=== PATIENT | female | born 1995 | race African-American/Black ===

== ENCOUNTER → 2017-02-21 | Outpatient (CLI) | payer OTHER ==
--- NOTE | 2017-02-21 11:35 | Diagnostic Imaging Report ---
PROCEDURE: MRI right lower extremity without contrast. TECHNIQUE: Multiplanar, multisequence non contrast-enhanced MRI of the right ankle was accomplished. INDICATION: Foot pain. Patient is a track runner. Evaluate for stress injury. COMPARISONS: None available. FINDINGS: TENDONS: Distal Achilles tendon is normal. The peroneal tendons are normal in position without tenosynovitis and are intact. Posterior tibialis, flexor digitorum longus and flexor hallux longus tendons are normal. The anterior tibialis and extensor hallux longus are normal. There is mild tenosynovitis of the extensor digitorum longus at the level of the talar neck. LIGAMENTS: Inferior tibiofibular syndesmotic ligaments are intact. The anterior talofibular, calcaneofibular and posterior talofibular ligaments are normal. Medial collateral ligamentous complex is normal. BONES AND CARTILAGE: No osteochondral lesion of the talar dome. No fracture or stress fracture. The articular cartilage of the tibiotalar and posterior subtalar joints are normal. SOFT TISSUES: No evidence of plantar fasciitis. No abnormal soft tissue scar/fibrosis within the tarsal canal/sinus tarsi or tarsal tunnel. No ankle joint effusion. IMPRESSION: 1. No stress fracture or bone contusion. 2. No acute ligamentous injury. 3. Mild tenosynovitis of the extensor digitorum longus common sheath at the level of the talar neck. This is near but does not directly correspond to the marker placed on the lateral aspect of the mid/hindfoot marked area of maximal pain. Etiology is likely mechanical in nature due to chronic repetitive microtrauma from running. Dictated by: Dictated on workstation # [id number]
== END ==
LOC: RAD 09:39
DX: M79.671 Pain in right foot (principal); M65.9 Synovitis and tenosynovitis, unspecified

== ENCOUNTER 2017-11-24 19:17 | Emergency (ER) | payer OTHER ==
[~2017-11-24] VITALS: Ht 175.3 cm; Wt 70.3 kg
--- OUTSIDE RECORDS SUMMARY | 2017-11-24 19:23 | XMS REPORT ---
Author Author MICHAEL BRAN Organization [employer] Address Unknown Phone Unavailable Care Team Providers Care Technology Sales Consultant Name Role Phone MICHAEL BRAN CP Unavailable Allergies, Adverse Reactions, Alerts Substance Reaction Event Type N.K.D.A. Info Not Available Non Drug Allergy Problems Problem Type Condition Code Onset Dates Condition Status Assessment Bronchitis J40 Active Medications Medication Code System Code Instructions Start Date End Date Status Dosage Zithromax Z-Jozef [facility] [address]-62 250 MG Orally Once a day February 13, 2016 February 18, 2016 2 tablets on the first day, then 1 tablet daily for 4 days ProAir HFA [facility] [place] [id number] 108 (90 Base) MCG/ACT Inhalation every 4 hrs prn February 13, 2016 2 puffs as needed Procedures Procedure Coding System Code Date Office Visit, New Pt., Level 3 CPT-4 37015 February 13, 2016 Vital Signs Date/Time: February 13, 2016 Temperature 99.8 F BMIPercentile 50.6 % Weight 151.4 lbs Height 70 in BMI 21.72 Index Blood Pressure Diastolic 62 mmHg Blood Pressure Systolic 120 mmHg Cardiac Monitoring Heart Rate 72 bpm Wt Percentile 81.51 % Ht Percentile 98.77 % Results No Known Results Summary Purpose [employer] Submission
--- OUTSIDE RECORDS SUMMARY | 2017-11-24 19:23 | XMS REPORT | Continuity of Care Document ---
Author Author [facility] Organization [facility] Address Unknown Phone Unavailable Allergies There is no data. Medications There is no data. Problems Date Dx Coded Attending Type Code Diagnosis Diagnosed By 12/28/2015 KELSEY RICHARDS DC, Ot M54.5 02/07/2016 Ot N63 02/21/2017 KELSEY RICHARDS DC, Ot M54.5 LOW BACK PAIN 02/21/2017 Ot N63 UNSPECIFIED LUMP IN BREAST 03/26/2017 JACQUIE PERALES MD Ot M65.9 SYNOVITIS AND TENOSYNOVITIS, UNSPECIFIED 03/26/2017 JACQUIE PERALES MD Ot M79.671 PAIN IN RIGHT FOOT 04/16/2017 JACQUIE PERALES MD Ot M65.9 SYNOVITIS AND TENOSYNOVITIS, UNSPECIFIED 04/16/2017 JACQUIE PERALES MD, Ot M79.671 PAIN IN RIGHT FOOT Procedures There is no data. Results There is no data. Encounters ACCT No. Visit Date/Time Discharge Status Pt. Type Provider Facility Loc./Unit Complaint [id number] 02/21/2017 09:39:00 02/21/2017 23:59:59 CLS Outpatient JACQUIE PERALES MD [facility] RAD M79.671 RT FOOT PAIN [id number] 12/15/2015 12:09:00 12/15/2015 23:59:59 CLS Outpatient KELSEY RICHARDS DC [facility] RAD LOW BACK PAIN OVER 1 YR [id number] 01/25/2016 09:10:00 Document Registration
[2017-11-24 19:33] LABS: BILIRUBIN,URINE NEGATIVE (NEGATIVE); CLARITY,URINE VERY CLOUDY; COLOR,URINE YELLOW; GLUCOSE, URINE (UA) NEGATIVE (NEGATIVE); KETONES,URINE NEGATIVE (NEGATIVE); LEUKOCYTE ESTERASE ,URINE 2+ (NEGATIVE); NITRITE,URINE NEGATIVE (NEGATIVE); PH,URINE 6 (5-9); PROTEIN,URINE 1+ (NEGATIVE); UROBILINOGEN,URINE NORMAL (NORMAL)
[2017-11-24 19:53] LABS: BACTERIA,URINE LARGE /HPF
[2017-11-24 19:54] LABS: SQUAMOUS EPITHELIAL CELL,UR 25-50 /HPF
[2017-11-24 19:56] LABS: AMPHETAMINE SCREEN, URINE NEGATIVE (NEGATIVE); BARBITURATE SCREEN URINE NEGATIVE (NEGATIVE); BENZODIAZEPINES SCREEN URINE NEGATIVE (NEGATIVE); CANNABINOID SCREEN, URINE NEGATIVE (NEGATIVE); COCAINE SCREEN URINE NEGATIVE (NEGATIVE); METHADONE STAT NEGATIVE (NEGATIVE); METHAMPHETAMINE SCREEN URINE S NEGATIVE (NEGATIVE); OPIATE SCREEN URINE NEGATIVE (NEGATIVE); OXYCODONE STAT NEGATIVE (NEGATIVE); PROPOXYPHENE STAT NEGATIVE (NEGATIVE); TRICYCLIC ANTIDEPRESSANTS SCRE NEGATIVE (NEGATIVE)
[2017-11-24] MEDS ORDERED: CYCL5TAB PO ×2 (20:06→20:08)
[2017-11-24] MEDS ORDERED: NAPR-1071 PO ×2 (20:06→20:08)
[2017-11-24] MEDS ORDERED: SULF1TAB35 PO ×2 (20:06→20:08)
--- NOTE | 2017-11-24 20:06 | ED Back Pain ---
General Chief Complaint: Back Problems Stated Complaint: BACK PAIN Nursing Triage Note: PATIENT STATES THAT SHE HURT HER BACK IN TRACK LAST FEBRUARY AND WAS SEEING A CHIROPRACTOR. IT GOT BETTER UNTIL LAST FRIDAY NIGHT WHEN SHE WAS DANCING AND IT STARTED INSTANTLY HURTNG AGAIN. IT IS MOSTLY ON THE LEFT SIDE OF HER LOWER BACK. Nursing Sepsis Screen: No Definite Risk Source of Information: Patient Exam Limitations: No Limitations History of Present Illness Date Seen by Provider: Nov 24, 2017 Time Seen by Provider: 20:02 Initial Comments To ER with a complaint of left low back pain that began on Friday night abruptly after a dance move. Pain is nonradiating. Currently she is being treated for bacterial vaginosis and yeast infection with Diflucan and metronidazole prescribed by [employer] [facility] [employer] She attends [employer] and is running track. She has a history of some chronic back pain and history of sacroiliac joint fracture from track related injury she states that she has not taken anything at home for the pain. Location: Lumbar Spine Timing/Duration: 2-3 Days Severity: Moderate Associated Symptoms: lower back pain Allergies and Home Medications Allergies Coded Allergies: No Known Drug Allergies (Unverified , 11/24/17) Constitutional: see HPI EENTM: see HPI Respiratory: no symptoms reported Cardiovascular: no symptoms reported Genitourinary: no symptoms reported Musculoskeletal: see HPI, back pain Skin: no symptoms reported Past Hvhdvea-Rdmhkj-Hatasz Hx Patient Social History Alcohol Use: Rarely Uses Recreational Drug Use: No Smoking Status: Never a Smoker 2nd Hand Smoke Exposure: No Recent Foreign Travel: No Contact w/Someone Who Travel: No Recent Infectious Disease Expo: No Recent Hopitalizations: No Seasonal Allergies Seasonal Allergies: No Surgeries History of Surgeries: No Respiratory History of Respiratory Disorde: No Cardiovascular History of Cardiac Disorders: No Neurological History of Neurological Disord: No Genitourinary History of Genitourinary Disor: No Gastrointestinal History of Gastrointestinal Di: No Musculoskeletal History of Musculoskeletal Dis: No Endocrine History of Endocrine Disorders: No HEENT History of HEENT Disorders: No Cancer History of Cancer: No Psychosocial History of Psychiatric Problem: No Integumentary History of Skin or Integumenta: No Blood Transfusions History of Blood Disorders: No Physical Exam Vital Signs Vital Sign - Last 12Hours 11/24/17 19:33 Temp 98.0 Pulse 72 Resp 20 B/P (MAP) 124/82 (96) Pulse Ox 97 O2 Delivery Room Air Capillary Refill : Less Than 3 Seconds General Appearance: No Apparent Distress, WD/WN HEENT: PERRL/EOMI, TMs Normal Neck: Full Range of Motion, Normal Inspection, Non Tender Respiratory: No Accessory Muscle Use, Accessory Muscle Use Gastrointestinal: Non Tender, Soft Back: Other (area of tenderness area of tenderness over the left sacroiliac joint) Neurologic/Psychiatric: Alert, Oriented x3, No Motor/Sensory Deficits Skin: Normal Color, Warm/Dry Progress/Results/Core Measures Results/Orders Lab Results Laboratory Tests Test 11/24/17 19:25 Range/Units Urine Color YELLOW Urine Clarity VERY CLOUDY H Urine pH 6 5-9 Urine Specific [place] 1.020 1.016-1.022 Urine Protein 1+ H NEGATIVE Urine Glucose (UA) NEGATIVE NEGATIVE Urine Ketones NEGATIVE NEGATIVE Urine Nitrite NEGATIVE NEGATIVE Urine Bilirubin NEGATIVE NEGATIVE Urine Urobilinogen NORMAL NORMAL MG/DL Urine Leukocyte Esterase 2+ H NEGATIVE Urine RBC (Auto) NEGATIVE NEGATIVE Urine RBC NONE /HPF Urine WBC 10-25 H /HPF Urine Squamous Epithelial Cells 25-50 H /HPF Urine Crystals NONE /LPF Urine Bacteria LARGE H /HPF Urine Casts NONE /LPF Urine Mucus NEGATIVE /LPF Urine Culture Indicated YES Urine Opiates Screen NEGATIVE NEGATIVE Urine Oxycodone Screen NEGATIVE NEGATIVE Urine Methadone Screen NEGATIVE NEGATIVE Urine Propoxyphene Screen NEGATIVE NEGATIVE Urine Barbiturates Screen NEGATIVE NEGATIVE Ur Tricyclic Antidepressants Screen NEGATIVE NEGATIVE Urine Phencyclidine Screen NEGATIVE NEGATIVE Urine Amphetamines Screen NEGATIVE NEGATIVE Urine Methamphetamines Screen NEGATIVE NEGATIVE Urine Benzodiazepines Screen NEGATIVE NEGATIVE Urine Cocaine Screen NEGATIVE NEGATIVE Urine Cannabinoids Screen NEGATIVE NEGATIVE My Orders Orders - ASHTYN LOPEZ APRN Ua Culture If Indicated (11/24/17 19:20) Urine Bedside (11/24/17 19:20) Drug Screen Stat (Urine) (11/24/17 19:39) Urine Culture (11/24/17 19:25) Vital Signs/I&O Vital Sign - Last 12Hours 11/24/17 19:33 Temp 98.0 Pulse 72 Resp 20 B/P (MAP) 124/82 (96) Pulse Ox 97 O2 Delivery Room Air Blood Pressure Mean: 96 Point of Care Testing Urine -Bedside: Negative Departure Impression Impression: Primary Impression: Acute low back pain without sciatica Additional Impression: Urinary tract infection Disposition: 01 HOME, SELF-CARE Condition: Stable Departure-Patient Inst. Decision time for Depature: 20:04 Referrals: NO,LOCAL PHYSICIAN (PCP/Family) Primary Care Physician Patient Instructions: Low Back Pain (DC), Urinary Tract Infection, Adult (DC) Add. Discharge Instructions: 1. Take the new antibiotics in addition to your current antibiotics. Follow-up with [employer] [facility] to discuss an MRI of her lumbar spine giving the length of your low back pains. Medication as directed. All discharge instructions reviewed with patient and/or family. Voiced understanding. Scripts Sulfamethoxazole/Trimethoprim (Bactrim Ds Tablet) 1 Each Tablet 1 EACH PO BID, #10 TAB Prov: ASHTYN LOPEZ [employer] 11/24/17 Naproxen (Naprosyn) 500 Mg Tablet 500 MG PO BID Y for PAIN-MODERATE, #14 TAB Prov: ASHTYN LOPEZ [employer] 11/24/17 Cyclobenzaprine HCl (Cyclobenzaprine HCl) 5 Mg Tablet 5 MG PO TID, #20 TAB Prov: ASHTYN LOPEZ [employer] 11/24/17 ASHTYN LOPEZ APRN Nov 24, 2017 20:06
[2017-11-24] MEDS ORDERED: TRIM/SULFAMETH 160/800 (SEPTRA DS) TAB PO ONE (20:15)
[2017-11-24] MEDS ORDERED: CYCLOBENZAPRINE 10 MG (FLEXERIL) TAB PO SCH (20:15)
[2017-11-24] MEDS ORDERED: NAPROXEN 250 MG (NAPROSYN) TABLET PO ONE (20:15)
[2017-11-24 20:22] VITALS: BP 124/82
== END 2017-11-24 20:21 | disposition home or self-care (01) ==
LOC: EDUNIT# 19:17 → ER 19:19
DX: M54.5 Low back pain (principal); N39.0 Urinary tract infection, site not specified
CPT/HCPCS: 80306; 81000; 84703; 87088; 99283

== ENCOUNTER 2017-12-23 08:34 | Outpatient (RCR) | payer OTHER ==
[~2017-12-23 08:34] MED LIST: CYCL5TAB PO; NAPR-1071 PO; SULF1TAB35 PO
== END 2018-01-02 10:06 | disposition home or self-care (01) ==
PROVIDERS: ATTEND Nurse Practitioner Family
DX: M54.5 Low back pain (principal)